=== PATIENT | male | born 1945 | race Caucasian/White ===

== ENCOUNTER → 2016-06-21 | Outpatient (CLI) | payer MEDICARE, BC | END | disposition home or self-care (01) | LOC: CDC 08:53 | DX: R00.1 Bradycardia, unspecified (principal); K42.9 Umbilical hernia without obstruction or gangrene | CPT/HCPCS: 93000 ==

== ENCOUNTER 2016-07-04 05:47 | Day surgery (SDC) | payer OTHER, BC ==
[~2016-07-04] VITALS: Ht 175.3 cm; Wt 88.5 kg
[~2016-07-04 05:47] MED LIST: ASPIRIN325 MG PO; B COMPLETE1 EACH PO; BYSTOLIC10 MG PO; CALCIUM 600 +1 EAC4 PO; CENTRUM SILVER1 EAC5 PO; CO Q-10100 MG PO; GINGER ROOT550 MG PO; GLUCOSAMINE/1 TABLET PO; LIPO-FLAVONO1 TABLET PO; METAMUCIL FIBE3.4 GM PO; OMEGA-3 FISH O1 EAC9 PO; OMEGA-3 FLAXS1000 MG PO; PRAVACHOL40 MG PO; PROAIR RESPICL90 MCG IH; VITAMIN B-12500 MC5 SL; VITAMIN C1000 MG PO; [UNRECOGNIZED DRUG - OTHER] PO
[2016-07-04 06:38] VITALS: BP 112/79
[2016-07-04] MEDS ORDERED: NORCO 5/3251 TABLET PO (08:46)
[2016-07-04 10:10] VITALS: BP 143/88
[2016-07-04 11:09] VITALS: BP 133/83
[2016-07-04 13:21] VITALS: BP 135/63
[2016-07-04 14:38] VITALS: BP 130/76
== END 2016-07-04 14:50 ==
LOC: SDC 05:47
PROC: 0WUF4JZ Supplement Abdominal Wall with Synthetic Substitute, Percutaneous Endoscopic Approach (ICD-10-PCS; principal; 2016-07-04)
DX: K43.9 Ventral hernia without obstruction or gangrene (principal); I10 Essential (primary) hypertension; E78.00 Pure hypercholesterolemia, unspecified; I71.2 Thoracic aortic aneurysm, without rupture; K58.9 Irritable bowel syndrome, unspecified; J45.909 Unspecified asthma, uncomplicated; Z87.891 Personal history of nicotine dependence
CPT/HCPCS: C1781; J0690; J1100; J2405; J2710; J3010

== ENCOUNTER 2016-07-06 03:38 | Emergency (ER) | payer OTHER, BC ==
[~2016-07-06] VITALS: Ht 172.7 cm; Wt 94.5 kg
[~2016-07-06 03:38] MED LIST changes: +NORCO 5/3251 TABLET PO
[2016-07-06 04:08] LABS: HEMATOCRIT 44.2 % (38.0-50.0); MCH 32.1 PG (29.0-34.0); MCHC 33.9 G/DL (30.0-36.0); MCV 94.6 FL (86-99); MEAN PLAT.VOLUME 9.5 uM^3 (9.0-12.4); PLATELET COUNT 157 K/uL (156-360); RBC DIS.WIDTH-CV 13.2 % (11.8-14.6); RBC DIS.WIDTH-SD 43.9 % (39-53); RED BLOOD COUNT 4.67 M/uL (4.00-5.50)
[2016-07-06 04:10] LABS: WHITE BLOOD COUNT 10.3 K/uL (4.1-10.2)
[2016-07-06 04:19] LABS: CHLORIDE 106 mEq/L (99-109); POTASSIUM 4.1 mEq/L (3.7-5.4); SODIUM 139 mEq/L (136-147)
[2016-07-06 04:22] LABS: GLUCOSE 118 mg/dL (70-99)
[2016-07-06 04:23] LABS: ANION GAP 9 MEQ/L (2-14)
[2016-07-06 04:24] LABS: TOTAL BILIRUBIN 1.1 mg/dL (0.0-1.0)
[2016-07-06 04:25] LABS: ALKALINE PHOSPHATASE 51 IU/L (3-129); GFR ESTIMATE (CALCULATED) > 59 mL/min/
[2016-07-06 04:26] LABS: UREA NITROGEN (BUN) 21 mg/dL (9-23)
[2016-07-06 04:29] LABS: LIPASE 24 U/L (1.0-51.0)
[2016-07-06] MEDS ORDERED: FLEET ENEMA-AD118 ML PR (05:44)
[2016-07-06] MEDS ORDERED: BENTYL20 MG PO (05:58)
[2016-07-06 06:03] VITALS: BP 119/82
== END 2016-07-06 06:14 | disposition home or self-care (01) ==
LOC: EME 03:38
PROVIDERS: Emergency Medicine
DX: K59.00 Constipation, unspecified (principal); G89.18 Other acute postprocedural pain; R10.84 Generalized abdominal pain; Z87.891 Personal history of nicotine dependence; J45.909 Unspecified asthma, uncomplicated; I10 Essential (primary) hypertension
CPT/HCPCS: 74177; 80053; 81003; 83605; 83690; 85027; 99281; 99285; J2270; J2405; J7030